=== PATIENT | male | born 1975 | race Caucasian/White ===

== ENCOUNTER 2018-05-29 11:01 | Emergency (ER) | payer OTHER ==
[~2018-05-29] VITALS: Ht 188 cm; Wt 108.9 kg
[2018-05-29 11:06] VITALS: BP_SYST 158
[2018-05-29] MEDS ORDERED: fentaNYL CITRATE/PF 100 MCG/2 ML AMP IM ONE (12:15)
[2018-05-29 13:14] VITALS: BP_SYST 140
== END 2018-05-29 13:14 | disposition home or self-care (01) ==
LOC: SED 11:01
DX: S16.1XXA Strain of muscle, fascia and tendon at neck level, initial encounter (principal); G89.29 Other chronic pain; M54.9 Dorsalgia, unspecified; Z88.6 Allergy status to analgesic agent; V43.52XA Car driver injured in collision with other type car in traffic accident, initial encounter; Y93.89 Activity, other specified; Y92.89 Other specified places as the place of occurrence of the external cause; Y99.8 Other external cause status
CPT/HCPCS: 72040; 72072; 72100; 72125; 96372; 99284; J3010